=== PATIENT | male | born 1960 ===

== ENCOUNTER 2019-02-16 10:45 | Inpatient (IN) | payer OTHER ==
[~2019-02-16] VITALS: Ht 177.8 cm; Wt 63.0 kg
[2019-02-16] MEDS ORDERED: LEVOTHYROXINE25 MCG PO (14:29)
[2019-02-16] MEDS ORDERED: CLONAZEPAM0.5 MG PO (14:30)
[2019-02-16] MEDS ORDERED: WELLBUTRIN XL300 MG PO (14:30)
[2019-02-16] MEDS ORDERED: HYDROCHLOROTHIA25 MG PO (14:30)
[2019-02-16] MEDS ORDERED: RESTORIL30 MG PO (14:31)
[2019-02-16] MEDS ORDERED: SEROQUEL50 MG PO (16:14)
[2019-02-24] MEDS ORDERED: DUI500 PO (13:15)
[2019-02-24] MEDS ORDERED: ELIQUIS2.5 MG PO (13:15)
[2019-02-24] MEDS ORDERED: PERCOCET 5-3251 EACH PO (13:15)
== END 2019-02-24 16:17 | DRG 470 ==
LOC: O/R 10:45 → SURG 02-22 06:10 → SURH 02-22 10:45 → SURG 02-22 14:17
PROVIDERS: ADMIT Orthopaedic Surgery
PROC: 0MNN0ZZ Release Right Knee Bursa and Ligament, Open Approach (ICD-10-PCS; 2019-02-22)
PROC: 0SRC0J9 Replacement of Right Knee Joint with Synthetic Substitute, Cemented, Open Approach (ICD-10-PCS; principal; 2019-02-22 12:45)
DX: M17.11 Unilateral primary osteoarthritis, right knee (principal); D62 Acute posthemorrhagic anemia; I10 Essential (primary) hypertension; E07.89 Other specified disorders of thyroid; S83.011A Lateral subluxation of right patella, initial encounter; M85.461 Solitary bone cyst, right tibia and fibula